=== PATIENT | female | born 1965 | race Caucasian/White ===

== ENCOUNTER 2016-06-01 11:30 | Emergency (ER) | payer BC, OTHER ==
[2016-06-01 12:00] VITALS: TEMP 98.3
--- NOTE | 2016-06-01 13:37 | ED ---
General Adult HPI - General Chief complaint: Head Injury Stated complaint: Fall Time Seen by Provider: 06/01/16 12:58 Source: patient, RN notes reviewed Mode of arrival: ambulatory Limitations: no limitations - History of Present Illness Initial comments: This is a 50-year-old female who presents with headache and neck pain after a fall that occurred yesterday. Patient states she slipped and fell onto the ice landing on her back and hitting her head. Patient denies any loss of consciousness. Patient states she's had a lingering headache after the incident but this has not been worsening, however it has not improved. Patient denies any nausea/vomiting, double vision, blurry vision or other visual changes. Patient states the left side back hurts but patient has been ambulating without difficulty or pain and she denies any numbness/tingling or weakness to bilateral upper and lower extremities. Patient denies any radicular pain. Patient denies any change in bowel or bladder function or loss of sensation to the saddle area. Patient denies any medical problems and patient is not currently on any medication. Patient denies being on any anticoagulants. Patient denies any recent fever, chills, shortness breath, chest pain, abdominal pain, diarrhea, hematuria, or any other complaints. - Related Data Allergies Allergy/AdvReac Type Severity Reaction Status Date / Time No Known Allergies Allergy Verified 06/01/16 12:00 Review of Systems ROS Statement: Those systems with pertinent positive or pertinent negative responses have been documented in the HPI. ROS Other: All systems not noted in ROS Statement are negative. Past Medical History Past Medical History: No Reported History History of Any Multi-Drug Resistant Organisms: None Reported Past Surgical History: Hysterectomy Past Psychological History: No Psychological Hx Reported Smoking Status: Never smoker Past Alcohol Use History: None Reported Past Drug Use History: None Reported General Exam - General Exam Comments Initial Comments: General: The patient is awake and alert, in no distress, and does not appear acutely ill. Eye: Pupils are equal, round and reactive to light, extra-ocular movements are intact. No nystagmus. There is normal conjunctiva bilaterally. No signs of icterus. Mouth and throat: There are moist mucous membranes and no oral lesions. Neck: There is tenderness to palpation of the cervical paraspinal muscles, and mild cervical midline tenderness, there is no JVD. Cardiovascular: There is a regular rate and rhythm. No murmur, rub or gallop is appreciated. Respiratory: Lungs are clear to auscultation, respirations are non-labored, breath sounds are equal. No wheezes, stridor, rales, or rhonchi. Musculoskeletal: Tenderness palpation over the left side lumbar paraspinal muscles. No lumbar or thoracic midline tenderness. Normal ROM. Patient's strength is 5/5 and coordination is intact with finger to nose test. Sensation intact. Radial Pulses equal bilaterally 2+. Neurological: A&O x 3. CN II-XII intact, There are no obvious motor or sensory deficits. Coordination appears grossly intact. Speech is normal. Skin: Skin is warm and dry and no rashes or lesions are noted. Psychiatric: Cooperative, appropriate mood & affect, normal judgment. Limitations: no limitations Course Vital Signs 06/01/16 11:58 Temperature 98.3 F Pulse Rate 65 Respiratory 20 Rate Blood Pressure 120/58 O2 Sat by Pulse 100 Oximetry Medical Decision Making - Medical Decision Making This is a 50-year-old female presents after a head injury after a slip and fall on the ice yesterday without LOC. On physical exam patient is grossly neurologically intact. Patient's strength is 5/5 and coordination is intact with finger to nose test. There is mild cervical midline tenderness with pain also to the cervical paraspinal muscles. The CT of the brain and C-spine was done and reviewed showing: #1 Mild posterior scalp contusion. No acute intracranial abnormality seen. #2 no acute fracture or malalignment of the cervical spine. Report read by Dr. Leroy. Patient is not on any anticoagulants. Imaging results were reviewed and discussed with patient. Discussed over-the- counter Tylenol or Motrin as needed for any pain. Discussed warm heating pads to the neck. Discussed return parameters. Discussed that patient should follow up with PCP in one to 2 days or return to the [facility] for any worsening symptoms or for any further concerns. Patient was receptive to this plan and patient will be discharged home. I discussed his case with attending physician Dr. Beard who agrees the plan as stated above. Disposition Clinical Impression: Head injury, Cervical strain Disposition: HOME SELF-CARE Condition: Good Instructions: Concussion (ED) Additional Instructions: Please use [id number] Tylenol, Motrin or Aleve as needed for pain. Please use warm heating pads to the area. Please follow-up with family doctor in the next 2 days of symptoms have not improved. Please return to emergency room if the symptoms increase or worsen or for any other concerns. Time of Disposition: 14:28
--- NOTE | 2016-06-01 14:06 | CT ---
EXAMINATION TYPE: CT brain elías wo con DATE OF EXAM: 06/01/2016 1:46 PM COMPARISON: NONE HISTORY: 50-year-old female neck pain and SIFUENTES, post fall on ice CT DLP: 1331 mGycm Automated exposure control for dose reduction was used. Technique: Examination of the head was done in axial plane without intravenous contrast. Coronal and sagittal reconstructions performed. CT of the cervical spine was obtained in axial plane without intravenous injection of contrast mater ial. Coronal and sagittal reformatted images were obtained from the axial views for evaluation of f ractures, spinal alignment and canal. FINDINGS: Head: There is no evidence of acute intracranial hemorrhage, acute ischemic changes, mass, mass-effect, or extra-axial fluid collection. There is no effacement of cerebral sulci or basal subarachnoid cister ns. There is no hydrocephalus. There is no midline shift. Chavarria-white matter distinction is preserv ed. Mild posterior scalp contusion without underlying calvarial fracture. Paranasal sinuses are well pneumatized. Minimal partial opacification inferior most left mastoid air cells probably retained secretions rather than mastoiditis in the absence of any focal pain. Orbits a nd globes are intact. Cervical spine: The alignment of the cervical spine is normal on coronal and reformatted images. There is no cranial vertebral abnormality. Fracture of the cervical spine is not seen. Scattered facet arthropathy result ing in variable mild neuroforaminal stenoses such as on the left at C3-C4, and both sides at C4-C5, a nd on the right at C6-C7. TThere is no evidence of focal disk herniation appreciated. There is no mahnaz tral spinal canal stenosis. Sagittal and coronal reformatted images confirm above findings. COMBINED IMPRESSION: 1. Mild posterior scalp contusion. No acute intracranial abnormality seen. 2. No acute fracture or malalignment of the cervical spine.
[2016-06-01 14:36] VITALS: BP 100/57; PULSE 62; RESP 18
== END 2016-06-01 14:36 | disposition home or self-care (01) ==
LOC: EC 11:30
DX: S16.1XXA Strain of muscle, fascia and tendon at neck level, initial encounter (principal); S09.90XA Unspecified injury of head, initial encounter; S00.03XA Contusion of scalp, initial encounter; W00.0XXA Fall on same level due to ice and snow, initial encounter
CPT/HCPCS: 70450; 72125; 99283

== ENCOUNTER → 2017-05-16 | Outpatient (CLI) | payer OTHER ==
--- NOTE | 2017-05-17 09:33 | MM ---
Reason for exam: screening (asymptomatic). Last mammogram was performed 1 year and 11 months ago. History: Patient is postmenopausal. Physical Findings: A clinical breast exam by your physician is recommended on an annual basis and results should be correlated with mammographic findings. MG Screening Mammo w CAD Bilateral CC and MLO view(s) were taken. Prior study comparison: June 08, 2015, bilateral MG screening mammo w CAD. October 23, 2013, right breast MG work up mamm w CAD RT. The breast tissue is heterogeneously dense. This may lower the sensitivity of mammography. No significant changes when compared with prior studies. ASSESSMENT: Benign, BI-RAD 2 RECOMMENDATION: Routine screening mammogram of both breasts in 1 year.
== END | disposition home or self-care (01) ==
LOC: RADMAMWWP 15:36
PROVIDERS: ATTEND Obstetrics & Gynecology
DX: Z12.31 Encounter for screening mammogram for malignant neoplasm of breast (principal)
CPT/HCPCS: 77067

== ENCOUNTER → 2018-06-19 | Outpatient (CLI) | payer BC ==
--- NOTE | 2018-06-20 10:52 | MM ---
Reason for exam: screening (asymptomatic). Last mammogram was performed 1 year and 1 month ago. History: Patient is postmenopausal. Physical Findings: A clinical breast exam by your physician is recommended on an annual basis and results should be correlated with mammographic findings. MG Screening Mammo w CAD Bilateral CC and MLO view(s) were taken. Prior study comparison: May 16, 2017, bilateral MG screening mammo w CAD. June 08, 2015, bilateral MG screening mammo w CAD. The breast tissue is heterogeneously dense. This may lower the sensitivity of mammography. There is no discrete abnormality. No significant changes when compared with prior studies. ASSESSMENT: Negative, BI-RAD 1 RECOMMENDATION: Routine screening mammogram of both breasts in 1 year.
== END ==
LOC: RADMAMWWP 07:34
PROVIDERS: ATTEND Obstetrics & Gynecology Obstetrics
DX: Z12.31 Encounter for screening mammogram for malignant neoplasm of breast (principal)
CPT/HCPCS: 77067

== ENCOUNTER 2019-06-24 17:49 | Emergency (ER) | payer BC ==
[2019-06-24 18:01] VITALS: BP 130/63; PULSE 75; RESP 18; TEMP 98
--- NOTE | 2019-06-24 18:28 | XR ---
EXAMINATION TYPE: XR ankle complete bilateral DATE OF EXAM: 06/24/2019 COMPARISON: NONE HISTORY: Pain TECHNIQUE: Frontal, lateral and oblique images of the right ankle are obtained. COMPARISON: None. FINDINGS: There is no acute fracture/dislocation evident. The joint spaces appear within normal tran its. The overlying soft tissue appears unremarkable. IMPRESSION: There is no acute fracture or dislocation seen. EXAMINATION TYPE: XR ankle complete bilateral DATE OF EXAM: 06/24/2019 COMPARISON: NONE HISTORY: Pain TECHNIQUE: 3 views of the left ankle are submitted for evaluation. FINDINGS: Obliquely oriented fracture distal fibula with displacement of 2 mm. Fractures as proximal to the level of the ankle mortise. Ankle mortise is intact. Soft tissues are within normal limits. IMPRESSION: 1. Obliquely oriented fracture distal fibula
[2019-06-24] MEDS ORDERED: MORPHINE SULFATE 2 MG/ML SYRINGE IM STA (19:36)
[2019-06-24] MEDS ORDERED: ACET/COD 300 MG/30 MG STARTER PACK 6 TAB BTL PO STA (19:36)
[2019-06-24] MEDS ORDERED: ONDANSETRON ODT 4 MG TAB PO STA (19:38)
--- NOTE | 2019-06-24 19:38 | ED ---
Lower Extremity Injury HPI - General Chief Complaint: Extremity Injury, Lower Stated Complaint: injured both ankles Time Seen by Provider: 06/24/19 18:20 Source: patient Mode of arrival: ambulatory Limitations: no limitations - History of Present Illness Initial Comments: 53-year-old female presenting for bilateral ankle pain just prior to arrival. Patient states that she was walking down the stairs with her grandson when she missed the last step she states that she attempted to catch herself as she tripped inverting both ankles. Patient states she fell into the snow and attempt did not drop the grandchild. Patient denies any injury to the neck had back or upper extremities. Patient denies loss of consciousness. Patient states the only pain is in her ankles. She states she has noticed bilateral ankle swelling. Patient denies any pain in the knees or the hips. Patient states that she is able to extend the knees bilaterally. Patient denies any numbness tingling or loss sensation of the lower extremity. Remaining review of systems negative and upon arrival patient appears well. - Related Data Allergies Allergy/AdvReac Type Severity Reaction Status Date / Time codeine Allergy Unknown Verified 06/24/19 17:57 Review of Systems ROS Statement: Those systems with pertinent positive or pertinent negative responses have been documented in the HPI. ROS Other: All systems not noted in ROS Statement are negative. Past Medical History Past Medical History: No Reported History History of Any Multi-Drug Resistant Organisms: None Reported Past Surgical History: Hysterectomy Past Psychological History: No Psychological Hx Reported Smoking Status: Never smoker Past Alcohol Use History: None Reported Past Drug Use History: None Reported General Exam - General Exam Comments Initial Comments: General: The patient is awake and alert, in no distress Eye: Pupils are equal, round and reactive to light, extra-ocular movements are intact. No nystagmus. There is normal conjunctiva bilaterally. No signs of icterus. Ears, nose, mouth and throat: There are moist mucous membranes and no oral lesions. Neck: The neck is supple, there is no tenderness or JVD. Cardiovascular: There is a regular rate and rhythm. No murmur, rub or gallop is appreciated. Respiratory: Lungs are clear to auscultation, respirations are non-labored, breath sounds are equal. No wheezes, stridor, rales, or rhonchi. Musculoskeletal: Normal ROM at the ankle b/l with pain, swelling noted on exam mostly lateral aspects/malleolus. No point localized pain over the proximal tibia or fibula. Strength 5/5 of the LE b/l including knees and ankles. No noted ankle laxity. Sensation intact of the LE b/l. DP pulses equal bilaterally 2+. Neurological: A&O x 3. CN II-XII intact grossly, There are no obvious motor or sensory deficits. Coordination appears grossly intact. Speech is normal. Skin: Skin is warm and dry and no rashes or lesions are noted. Psychiatric: Cooperative, appropriate mood & affect, normal judgment. Limitations: no limitations Course Vital Signs 06/24/19 06/24/19 17:58 20:05 Temperature 98 F 98 F Pulse Rate 75 75 Respiratory 18 18 Rate Blood Pressure 130/63 130/63 O2 Sat by Pulse 100 100 Oximetry - Reevaluation(s) Reevaluation #1: Initially patient refused pain medications secondary to codeine causing headaches, but when asked again patient stated she would like to try tylenol #3 and was aware it contained codeine and is aware of possible side effects/ risks. 06/24/19 Procedures - Orthopedic Splinting/Casting Injury #1 Side: left Lower Extremity Injury Location: ankle Lower Extremity Immobilizer: posterior splint, fiberglass cast Additional Comments: Pt N/V intact before and after splint placement Medical Decision Making - Medical Decision Making 53-year-old female presenting for bilateral ankle pain. Patient is found to have a left fibula fracture with 2 mm of anterior displacement with concern for right ankle sprain. Patient had a air splint applied to the right ankle and posterior mold with stirrups applied to the left ankle. Patient was instructed to [id number] on the left ankle and use crutches for all ambulation. Patient is aware of RICE treatment. Compartments soft and compressible. Patient was neurovascularly intact upon discharge. She is aware that she needs to follow-up with primary care provider, and return for increasing pain, n umbness or any other concerns to the ER. Patietn discharged appearing well after reviewing imaging with Dr. Fagan Disposition Clinical Impression: Right ankle sprain, Left fibular fracture Disposition: HOME SELF-CARE Condition: Good Instructions (If sedation given, give patient instructions): Ankle Fracture (ED), Ankle Sprain (ED) Additional Instructions: Please use medication as discussed. Please follow-up with orthopedic surgery in the next 2-3 days, please non weight bear on the left ankle, use crutches and keep the ankle splints in place for support of the ankles bilaterally. Please return to emergency room if the symptoms increase or worsen or for any other concerns. Is patient prescribed a controlled substance at d/c from ED?: No Referrals: Kaur Atkinson MD [Primary Care Provider] - 1-2 days Kaushal Handley MD [Medical Doctor] - 1-2 days Time of Disposition: 19:38
== END 2019-06-24 20:05 | disposition home or self-care (01) ==
LOC: EC 17:49
DX: S82.402A Unspecified fracture of shaft of left fibula, initial encounter for closed fracture (principal); S93.401A Sprain of unspecified ligament of right ankle, initial encounter; Z88.5 Allergy status to narcotic agent; W10.9XXA Fall (on) (from) unspecified stairs and steps, initial encounter; Y93.01 Activity, walking, marching and hiking
CPT/HCPCS: 73610; 99283; 29515; 96372; J2270

== ENCOUNTER → 2019-07-02 | Outpatient (CLI) | payer BC | LOC: LABWHC1 10:55 | PROVIDERS: ATTEND Orthopaedic Surgery | DX: E55.9 Vitamin D deficiency, unspecified (principal); M25.572 Pain in left ankle and joints of left foot; S82.62XD Displaced fracture of lateral malleolus of left fibula, subsequent encounter for closed fracture with routine healing; M25.571 Pain in right ankle and joints of right foot; S93.401D Sprain of unspecified ligament of right ankle, subsequent encounter | CPT/HCPCS: 36415; 82306 ==

== ENCOUNTER → 2020-04-21 | Outpatient (CLI) | payer BC ==
--- NOTE | 2020-04-22 13:52 | MM ---
Reason for exam: screening (asymptomatic). Last mammogram was performed 1 year and 10 months ago. History: Patient is postmenopausal. Physical Findings: A clinical breast exam by your physician is recommended on an annual basis and results should be correlated with mammographic findings. MG Screening Mammo w CAD Bilateral CC and MLO view(s) were taken. Prior study comparison: June 19, 2018, bilateral MG screening mammo w CAD. May 16, 2017, bilateral MG screening mammo w CAD. The breast tissue is heterogeneously dense. This may lower the sensitivity of mammography. No significant changes when compared with prior studies. ASSESSMENT: Benign, BI-RAD 2 RECOMMENDATION: Routine screening mammogram of both breasts in 1 year.
== END | disposition home or self-care (01) ==
LOC: RADMAMWWP 15:31
PROVIDERS: ATTEND Obstetrics & Gynecology Obstetrics
DX: Z12.31 Encounter for screening mammogram for malignant neoplasm of breast (principal)
CPT/HCPCS: 77067

== ENCOUNTER 2020-06-16 19:35 | Emergency (ER) | payer BC ==
[2020-06-16 19:53] LABS: Appearance,Urine Clear (Clear); Bilirubin,Urine Negative (Negative); Blood,Urine Negative (Negative); Color,Urine Yellow; Glucose,Urine (UA) Negative (Negative); Ketones,Urine Negative (Negative); Leukocyte Esterase,Urine Negative (Negative); Nitrite,Urine Negative (Negative); PH, Urine 5.5 (5.0-8.0); Protein,Urine Negative (Negative); Specific Gravity,Urine 1.019 (1.001-1.035); Urobilinogen,Urine <2.0 mg/dL (<2.0)
[2020-06-16] MEDS ORDERED: SODIUM CHLORIDE 0.9% 1,000 ML IV STA (19:53)
--- NOTE | 2020-06-16 19:53 | ED ---
Abdominal Pain HPI - General Chief Complaint: Abdominal Pain Stated Complaint: ABD pain Time Seen by Provider: 06/16/20 19:42 Source: patient, RN notes reviewed Mode of arrival: ambulatory Limitations: no limitations - History of Present Illness Initial Comments: Is a 54-year-old female that comes to the emergency department complaining of lower abdominal pain and bloating and she noted that she was at work at around 1:00 today she noticed that she has had some abdominal bloating to the portion on the underpants at work. She says she has a bleeding around 2:00 because she was having some discomfort in her lower abdomen. She noted that most of the pain and the discomfort was in her right lower quadrant.She said at the time the pain was a 7 on a 10 that was constant. But as of now while lying in bed it was about a 3 out of 10. She denied wanting any pain medication and that she took Motrin before she came in. He did note that walking around and moving made the pain worse velamen admit pain better.She reported that she was worried about appendicitis and was hesitant to come in in case it was nothing. She denied any nausea or vomiting chest pain or shortness of breath headache fever fatigue chills constipation diarrhea. - Related Data Allergies Allergy/AdvReac Type Severity Reaction Status Date / Time codeine Allergy Unknown Verified 06/16/20 19:38 Review of Systems ROS Statement: Those systems with pertinent positive or pertinent negative responses have been documented in the HPI. ROS Other: All systems not noted in ROS Statement are negative. Past Medical History Past Medical History: No Reported History History of Any Multi-Drug Resistant Organisms: None Reported Past Surgical History: Hysterectomy Past Psychological History: No Psychological Hx Reported Smoking Status: Never smoker Past Alcohol Use History: None Reported Past Drug Use History: None Reported General Exam Limitations: no limitations General appearance: alert, in no apparent distress Head exam: Present: atraumatic, normocephalic, normal inspection Eye exam: Present: normal appearance, PERRL, EOMI. Absent: scleral icterus, conjunctival injection, periorbital swelling ENT exam: Present: normal exam, mucous membranes moist Neck exam: Present: normal inspection. Absent: tenderness, meningismus, lymphadenopathy Respiratory exam: Present: normal lung sounds bilaterally. Absent: respiratory distress, wheezes, rales, rhonchi, stridor Cardiovascular Exam: Present: regular rate, normal rhythm, normal heart sounds. Absent: systolic murmur, diastolic murmur, rubs, gallop, clicks GI/Abdominal exam: Present: soft, tenderness (Right lower quadrant), rebound (Right lower quadrant), normal bowel sounds. Absent: distended, guarding, rigid Extremities exam: Present: normal inspection, full ROM, normal capillary refill. Absent: tenderness, pedal edema, joint swelling, calf tenderness Neurological exam: Present: alert, oriented X3, CN II-XII intact Psychiatric exam: Present: normal affect, normal mood Skin exam: Present: warm, dry, intact, normal color. Absent: rash Course Vital Signs 06/16/20 06/16/20 19:36 21:29 Temperature 97.6 F 98.0 F Pulse Rate 78 70 Respiratory 18 16 Rate Blood Pressure 129/75 106/55 O2 Sat by Pulse 96 98 Oximetry Medical Decision Making - Medical Decision Making 54-year-old female complaining of right lower quadrant pain for [address] of the abdomen and pelvis ordered. Patient denied needing any pain medication or nausea medication. Case discussed with Dr. Haines, decided it was okay for patient discharged home. - Lab Data Result diagrams: 06/16/20 20:10 06/16/20 20:10 Lab Results 06/16/20 06/16/20 06/16/20 Range/Units 19:41 20:10 20:10 WBC 6.0 (3.8-10.6) k/uL RBC 4.72 (3.80-5.40) m/uL Hgb 14.7 (11.4-16.0) gm/dL Hct 42.8 (34.0-46.0) % MCV 90.6 (80.0-100.0) fL MCH 31.1 (25.0-35.0) pg MCHC 34.3 (31.0-37.0) g/dL RDW 13.6 (11.5-15.5) % Plt Count 228 (150-450) k/uL MPV 7.9 Neutrophils % 46 % Lymphocytes % 37 % Monocytes % 9 % Eosinophils % 5 % Basophils % 1 % Neutrophils # 2.8 (1.3-7.7) k/uL Lymphocytes # 2.2 (1.0-4.8) k/uL Monocytes # 0.5 (0-1.0) k/uL Eosinophils # 0.3 (0-0.7) k/uL Basophils # 0.1 (0-0.2) k/uL Sodium 140 (137-145) mmol/L Potassium 3.6 (3.5-5.1) mmol/L Chloride 104 (98-107) mmol/L Carbon Dioxide 29 (22-30) mmol/L Anion Gap 7 mmol/L BUN 20 H (7-17) mg/dL Creatinine 0.99 (0.52-1.04) mg/dL Est GFR (CKD-EPI)AfAm 74 (>60 ml/min/1.73 sqM) Est GFR (CKD-EPI)NonAf 64 (>60 ml/min/1.73 sqM) Glucose 105 H (74-99) mg/dL Calcium 9.6 (8.4-10.2) mg/dL Total Bilirubin 0.4 (0.2-1.3) mg/dL AST 34 (14-36) U/L ALT 17 (4-34) U/L Alkaline Phosphatase 77 (38-126) U/L Total Protein 6.9 (6.3-8.2) g/dL Albumin 4.1 (3.5-5.0) g/dL Amylase 62 (30-110) U/L Lipase 199 (23-300) U/L Urine Color Yellow Urine Appearance Clear (Clear) Urine pH 5.5 (5.0-8.0) Ur Specific Butler 1.019 (1.001-1.035) Urine Protein Negative (Negative) Urine Glucose (UA) Negative (Negative) Urine Ketones Negative (Negative) Urine Blood Negative (Negative) Urine Nitrite Negative (Negative) Urine Bilirubin Negative (Negative) Urine Urobilinogen <2.0 (<2.0) mg/dL Ur Leukocyte Esterase Negative (Negative) - Radiology Data Radiology results: report reviewed, image reviewed Negative computed tomography scan of abdomen and pelvis. Appendix not seen. No sign of thickened appendix. Disposition Clinical Impression: Abdominal pain, Constipation Disposition: HOME SELF-CARE Instructions (If sedation given, give patient instructions): Abdominal Pain (ED), Constipation (ED) Additional Instructions: Please return to the Emergency Department if symptoms worsen or any other concerns. Follow-up primary care 2-3 days. Drink half the bottle of magnesium citrate, if no bowel movement 4 hours drink a half. Take Motrin as needed for pain. Is patient prescribed a controlled substance at d/c from ED?: No Referrals: Kaur Atkinson MD [Primary Care Provider] - 1-2 days Time of Disposition: 21:40
[2020-06-16 20:25] LABS: Basophils # (A) 0.1 k/uL (0-0.2); Basophils % (A) 1 %; Eosinophils # (A) 0.3 k/uL (0-0.7); Eosinophils % (A) 5 %; HCT 42.8 % (34.0-46.0); HGB 14.7 gm/dL (11.4-16.0); Lymphocytes # (A) 2.2 k/uL (1.0-4.8); Lymphocytes % (A) 37 %; MCH 31.1 pg (25.0-35.0); MCHC 34.3 g/dL (31.0-37.0); MCV 90.6 fL (80.0-100.0); Mean Platelet Volume 7.9; Monocytes # (A) 0.5 k/uL (0-1.0); Monocytes % (A) 9 %; Neutrophils # (A) 2.8 k/uL (1.3-7.7); Neutrophils % (A) 46 %; Platelet Count 228 k/uL (150-450); RBC 4.72 m/uL (3.80-5.40); RDW 13.6 % (11.5-15.5)
[2020-06-16 20:41] LABS: Albumin 4.1 g/dL (3.5-5.0); Calcium 9.6 mg/dL (8.4-10.2); Potassium 3.6 mmol/L (3.5-5.1); Total Bilirubin 0.4 mg/dL (0.2-1.3); Total Protein 6.9 g/dL (6.3-8.2)
--- NOTE | 2020-06-16 20:53 | CT ---
EXAMINATION TYPE: CT abdomen pelvis w con DATE OF EXAM: 06/16/2020 COMPARISON: None HISTORY: Right lower quadrant abdominal pain. CT DLP: 569 mGycm Automated exposure control for dose reduction was used. CONTRAST: Performed with IV Contrast, patient injected with 100ml mL of Isovue 300. Images obtained from the diaphragm to the floor the pelvis with IV contrast. Lung bases are clear. There is no pleural effusion. Heart size is normal. There is no pericardial eff usion. Liver spleen stomach pancreas gallbladder appear normal. Bile ducts are not dilated. There is no adrenal mass. Kidneys show satisfactory contrast opacification. There is no hydronephrosi s. Ureters are not dilated. Delayed images show normal renal excretion. There is no retroperitoneal a denopathy. Bladder distends smoothly. There is no inguinal hernia. There is no free fluid in the pelv is. There is no mesenteric edema. There is no ascites or free air. There is no bowel obstruction. The cec um is low in the pelvis. Appendix is not seen with certainty. There is no sign of thickened appendix. The lumbar vertebra have normal spacing and alignment. The posterior elements are intact. There is no compression fracture. Facet joints are intact. Bony pelvis is intact. Hip joints appear intact. Ther e are small degenerative cysts in the right acetabulum. IMPRESSION: Negative CT scan abdomen and pelvis. Appendix not seen. No sign of thickened appendix.
[2020-06-16 21:30] VITALS: BP 106/55; PULSE 70; RESP 16; TEMP 98
[2020-06-16] MEDS ORDERED: MAGNESIUM CITRATE 296 ML BOTTLE PO ONE (21:38)
== END 2020-06-16 21:53 | disposition home or self-care (01) ==
LOC: EC 19:35
DX: K59.00 Constipation, unspecified (principal); Z88.5 Allergy status to narcotic agent
CPT/HCPCS: 80053; 82150; 83690; 85025; 81003; 74177; 99284; 96360; Q9967

== ENCOUNTER → 2021-07-13 | Outpatient (CLI) | payer BC ==
--- NOTE | 2021-07-15 12:39 | MM ---
Reason for exam: screening (asymptomatic). Last mammogram was performed 1 year and 3 months ago. History: Patient is postmenopausal. Physical Findings: A clinical breast exam by your physician is recommended on an annual basis and results should be correlated with mammographic findings. MG Screening Mammo w CAD Bilateral CC and MLO view(s) were taken. Prior study comparison: April 21, 2020, bilateral MG screening mammo w CAD. June 19, 2018, bilateral MG screening mammo w CAD. The breast tissue is heterogeneously dense. This may lower the sensitivity of mammography. No significant changes when compared with prior studies. ASSESSMENT: Benign, BI-RAD 2 RECOMMENDATION: Routine screening mammogram of both breasts in 1 year.
== END | disposition home or self-care (01) ==
LOC: RADMAMWWP 16:25
PROVIDERS: ATTEND Obstetrics & Gynecology Obstetrics
DX: Z12.31 Encounter for screening mammogram for malignant neoplasm of breast (principal); Z78.0 Asymptomatic menopausal state
CPT/HCPCS: 77067